=== PATIENT | female | born 1975 | race Asian ===

== ENCOUNTER 2024-03-03 07:30 | Inpatient (IN) | payer OTHER ==
[2024-03-01 08:55] LABS: BILIRUBIN,URINE NEGATIVE (NEGATIVE); BLOOD, URINE NEGATIVE (NEGATIVE); CLARITY/URINE CLEAR (CLEAR); COLOR,URINE YELLOW (YELLOW); GLUCOSE,URINE NEGATIVE (NEGATIVE); KETONES,URINE NEGATIVE (NEGATIVE); LEUKOCYTE ESTERASE ,URINE 1+ (NEGATIVE); NITRITE, URINE NEGATIVE (NEGATIVE); PROTEIN URINE NEGATIVE (NEGATIVE); UROBILINOGEN,URINE 0.2 (0.2-1.0)
[2024-03-01 08:58] LABS: BASOPHILS # (AUTO) 0.1 K/uL (0.0-0.2); BASOPHILS % (AUTO) 0.8 % (0.0-2.0); EOSINOPHILS # (AUTO) 0.3 K/uL (0.0-0.4); EOSINOPHILS % (AUTO) 3.1 % (0.0-4.0); HEMATOCRIT 31.5 % (36-48); HEMOGLOBIN 10.1 g/dL (12.0-16.0); LYMPHOCYTES # (AUTO) 2.1 K/uL (1.0-5.5); LYMPHOCYTES % (AUTO) 21.5 % (20.5-51.5); MEAN CORPUSCULAR HEMOGLOBIN 20 pg (27-31); MEAN CORPUSCULAR HGB CONC 32 % (32-36); MEAN CORPUSCULAR VOLUME 63 fL (79.0-98.0); MONOCYTES # (AUTO) 0.6 K/uL (0.0-1.0); MONOCYTES % (AUTO) 5.9 % (1.7-9.3); NEUTROPHILS # (AUTO) 6.7 K/uL (1.8-7.7); NEUTROPHILS % (AUTO) 68.7 % (40.0-70.0); PLATELET COUNT (AUTO) 396 K/uL (130-430); RED BLOOD CELL COUNT(AUTO) 4.97 MIL/uL (4.2-6.2); WHITE BLOOD COUNT (AUTO) 9.7 K/uL (4.8-10.8)
[2024-03-01 09:45] LABS: BACTERIA,URINE RARE /HPF (None Seen); RBC,URINE 0-3 /HPF (0-3)
[2024-03-01 09:57] LABS: ALBUMIN 4.1 g/dL (3.4-4.8); CALCIUM 9.5 mg/dL (8.4-11.0); CREATININE 0.54 mg/dL (0.55-1.30); POTASSIUM 4.4 mmol/L (3.5-5.1); TOTAL BILIRUBIN 0.3 mg/dL (0.0-1.0); TOTAL PROTEIN, SERUM 8.6 g/dL (6.4-8.3)
[2024-03-01 10:04] LABS: HYPOCHROMASIA SLIGHT
[2024-03-01 10:05] LABS: ANISOCYTOSIS 1+
[~2024-03-03] VITALS: Ht 149.9 cm; Wt 48.1 kg
[2024-03-08 12:05] LABS: BASOPHILS # (AUTO) 0.1 K/uL (0.0-0.2); EOSINOPHILS # (AUTO) 0.3 K/uL (0.0-0.4); EOSINOPHILS % (AUTO) 3.5 % (0.0-4.0); HEMATOCRIT 30.6 % (36-48); HEMOGLOBIN 9.8 g/dL (12.0-16.0); LYMPHOCYTES # (AUTO) 2.7 K/uL (1.0-5.5); LYMPHOCYTES % (AUTO) 32.4 % (20.5-51.5); MEAN CORPUSCULAR HEMOGLOBIN 20 pg (27-31); MEAN CORPUSCULAR HGB CONC 32 % (32-36); MEAN CORPUSCULAR VOLUME 63 fL (79.0-98.0); MONOCYTES # (AUTO) 0.7 K/uL (0.0-1.0); MONOCYTES % (AUTO) 8.4 % (1.7-9.3); NEUTROPHILS # (AUTO) 4.5 K/uL (1.8-7.7); NEUTROPHILS % (AUTO) 54.7 % (40.0-70.0); PLATELET COUNT (AUTO) 345 K/uL (130-430); RED BLOOD CELL COUNT(AUTO) 4.85 MIL/uL (4.2-6.2); RED CELL DISTRIBUTION WIDTH 19.9 % (9.0-15.0); WHITE BLOOD COUNT (AUTO) 8.2 K/uL (4.8-10.8)
[2024-03-08 12:15] LABS: HCG,QUAL RESULT NEGATIVE (NEGATIVE)
[2024-03-10] MEDS: CEFAZOLIN SOD 2 GM in D5W 50 ML IV ONE (07:00)
[2024-03-10] MEDS ORDERED: PROP10TA10 PO ×2 (09:49→14:55)
[2024-03-10] MEDS: ACETAMINOPHEN I.V. 1000 MG 100 ML IV ONE (11:33)
[2024-03-10] MEDS: MIDAZOLAM HCL 2 MG/2 ML VIAL (VERSED) ONE (11:33)
[2024-03-10] MEDS: fentaNYL CITRATE/PF 100 MCG/2 ML AMP ONE (11:33)
[2024-03-10] MEDS ORDERED: DEXAMETHASONE SOD PHOSPHATE 4 MG/ML VIAL ONE (11:34)
[2024-03-10] MEDS: MORPHINE SULFATE 10MG/10ML PF AMP ONE (11:38)
[2024-03-10] MEDS ORDERED: HYDROmorphone 1 MG/ML INJ. CARTRIDGE IVP PRN (13:15)
[2024-03-10] MEDS ORDERED: NALOXONE HCL 0.4 MG/ML AMP (NARCAN) IVP PRN ×2 (13:15→14:00)
[2024-03-10] MEDS ORDERED: fentaNYL CITRATE/PF 100 MCG/2 ML AMP IVP PRN ×2 (13:15)
[2024-03-10] MEDS ORDERED: ONDANSETRON HCL 4 MG/2 ML VIAL IVP PRN (13:15)
[2024-03-10] MEDS: LR 1,000 ML IV ONE (13:15)
[2024-03-10] MEDS ORDERED: HYDROmorphone 2 MG/ML VIAL IVP PRN (14:00)
[2024-03-10] MEDS: LR 1,000 ML IV SCH (14:00)
[2024-03-10] MEDS ORDERED: VITD2000 PO (14:55)
[2024-03-10 15:35] LABS: MEAN CORPUSCULAR VOLUME 63 fL (79.0-98.0)
[2024-03-10 15:46] LABS: BASOPHILS # (AUTO) 0.1 K/uL (0.0-0.2); BASOPHILS % (AUTO) 0.4 % (0.0-2.0); EOSINOPHILS # (AUTO) 0.1 K/uL (0.0-0.4); EOSINOPHILS % (AUTO) 0.3 % (0.0-4.0); HEMATOCRIT 28.9 % (36-48); HEMOGLOBIN 9.4 g/dL (12.0-16.0); LYMPHOCYTES # (AUTO) 1.3 K/uL (1.0-5.5); LYMPHOCYTES % (AUTO) 7.5 % (20.5-51.5); MEAN CORPUSCULAR HEMOGLOBIN 21 pg (27-31); MEAN CORPUSCULAR HGB CONC 32 % (32-36); MONOCYTES # (AUTO) 0.3 K/uL (0.0-1.0); MONOCYTES % (AUTO) 1.8 % (1.7-9.3); PLATELET COUNT (AUTO) 317 K/uL (130-430); RED BLOOD CELL COUNT(AUTO) 4.58 MIL/uL (4.2-6.2); RED CELL DISTRIBUTION WIDTH 20.3 % (9.0-15.0); WHITE BLOOD COUNT (AUTO) 17.8 K/uL (4.8-10.8)
[2024-03-10 16:53] VITALS: BP_SYST 120; PULSE 84; RESP 16; TEMP 97.1
[2024-03-10 17:26] VITALS: O2SAT 97
[2024-03-10] MEDS: ceFAZolin SODIUM 1 GM in D5W 50 ML IV SCH (18:18)
[2024-03-10] MEDS: SIMETHICONE 80 MG TAB.CHEW PO SCH (18:18)
[2024-03-10 20:20] VITALS: BP_SYST 122; PULSE 85; RESP 16; TEMP 98; O2SAT 98
[2024-03-10 20:30] VITALS: O2SAT 98
[2024-03-11] MEDS: KETOROLAC TROMETHAMINE 30 MG VIAL IVP SCH
[2024-03-11 01:26] VITALS: BP_SYST 126; PULSE 93; RESP 17; TEMP 99.9; O2SAT 97
[2024-03-11 08:00] VITALS: BP_SYST 117; PULSE 104; RESP 17; TEMP 100; O2SAT 97
[2024-03-11] MEDS: ACETAMINOPHEN 500 MG TABLET PO PRN (09:56)
[2024-03-11 12:41] LABS: BASOPHILS % (AUTO) 0.3 % (0.0-2.0); EOSINOPHILS % (AUTO) 0.2 % (0.0-4.0); HEMATOCRIT 23.2 % (36-48); HEMOGLOBIN 7.5 g/dL (12.0-16.0); LYMPHOCYTES # (AUTO) 1.7 K/uL (1.0-5.5); LYMPHOCYTES % (AUTO) 11.9 % (20.5-51.5); MEAN CORPUSCULAR HEMOGLOBIN 21 pg (27-31); MEAN CORPUSCULAR HGB CONC 32 % (32-36); MEAN CORPUSCULAR VOLUME 64 fL (79.0-98.0); MONOCYTES # (AUTO) 0.9 K/uL (0.0-1.0); MONOCYTES % (AUTO) 6.4 % (1.7-9.3); NEUTROPHILS # (AUTO) 11.4 K/uL (1.8-7.7); NEUTROPHILS % (AUTO) 81.2 % (40.0-70.0); PLATELET COUNT (AUTO) 281 K/uL (130-430); RED BLOOD CELL COUNT(AUTO) 3.64 MIL/uL (4.2-6.2); RED CELL DISTRIBUTION WIDTH 19.9 % (9.0-15.0)
[2024-03-11 16:00] VITALS: BP_SYST 133; PULSE 98; RESP 17; TEMP 98.7; O2SAT 97
[2024-03-11 20:00] VITALS: BP_SYST 140; PULSE 100; RESP 18; TEMP 100.1
[2024-03-11] MEDS: HYDROmorphone 1 MG/ML INJ. CARTRIDGE IM PRN (21:06)
[2024-03-12] VITALS: BP_SYST 112; PULSE 85; RESP 18; TEMP 98.4; O2SAT 94
[2024-03-12 08:05] VITALS: O2SAT 98
[2024-03-12 09:38] LABS: BASOPHILS # (AUTO) 0.1 K/uL (0.0-0.2); BASOPHILS % (AUTO) 0.4 % (0.0-2.0); EOSINOPHILS # (AUTO) 0.1 K/uL (0.0-0.4); EOSINOPHILS % (AUTO) 0.4 % (0.0-4.0); HEMATOCRIT 27.2 % (36-48); HEMOGLOBIN 8.8 g/dL (12.0-16.0); LYMPHOCYTES # (AUTO) 1.8 K/uL (1.0-5.5); LYMPHOCYTES % (AUTO) 10.9 % (20.5-51.5); MEAN CORPUSCULAR HEMOGLOBIN 22 pg (27-31); MEAN CORPUSCULAR HGB CONC 32 % (32-36); MEAN CORPUSCULAR VOLUME 66 fL (79.0-98.0); MONOCYTES # (AUTO) 1.4 K/uL (0.0-1.0); MONOCYTES % (AUTO) 8.4 % (1.7-9.3); NEUTROPHILS # (AUTO) 13.2 K/uL (1.8-7.7); NEUTROPHILS % (AUTO) 79.9 % (40.0-70.0); PLATELET COUNT (AUTO) 258 K/uL (130-430); RED CELL DISTRIBUTION WIDTH 21.5 % (9.0-15.0); WHITE BLOOD COUNT (AUTO) 16.5 K/uL (4.8-10.8)
[2024-03-12 10:14] LABS: ANISOCYTOSIS 2+; HYPOCHROMASIA SLIGHT
[2024-03-12 10:44] VITALS: BP_SYST 128; PULSE 86; RESP 15; TEMP 99.7; O2SAT 97
[2024-03-12] MEDS ORDERED: KETOROLAC TROMETHAMINE 30 MG VIAL IVP PRN (13:00)
[2024-03-12 15:55] VITALS: BP_SYST 126; PULSE 82; RESP 15; TEMP 99.5; O2SAT 97
[2024-03-12] MEDS: OXYCODONE/ACETAMINOPHEN 5-325 TABLET PO PRN (16:52)
[2024-03-12] MEDS: LACTULOSE 20 GM/30 ML UDC PO ONE (16:52)
[2024-03-13 00:37] VITALS: BP_SYST 125; PULSE 97; RESP 16; TEMP 97.4; O2SAT 95
[2024-03-13 08:00] VITALS: BP_SYST 139; BP_SYST 145; PULSE 71; PULSE 78; RESP 17; RESP 18; TEMP 97.3; TEMP 98.7; O2SAT 94
[2024-03-13] MEDS: LACTULOSE 20 GM/30 ML UDC PO SCH (09:13)
[2024-03-13 12:00] VITALS: BP_SYST 128; PULSE 68; RESP 17; TEMP 97.8; O2SAT 97
[2024-03-13 16:00] VITALS: BP_SYST 133; PULSE 80; RESP 19; TEMP 98.1; O2SAT 98
[2024-03-13 20:00] VITALS: BP_SYST 135; PULSE 82; RESP 18; TEMP 98.2; O2SAT 96
[2024-03-14 02:00] VITALS: BP_SYST 138; PULSE 85; RESP 20; TEMP 97.5; O2SAT 95
[2024-03-14 08:00] VITALS: BP_SYST 115; PULSE 86; RESP 18; TEMP 98.1; O2SAT 97
[2024-03-14] MEDS: BISACODYL 10 MG/SUPPOSITORY RC PRN (09:17)
[2024-03-14 12:00] VITALS: BP_SYST 114; PULSE 68; RESP 17; TEMP 98.1; O2SAT 96
[2024-03-14 14:14] VITALS: BP_SYST 119; PULSE 79; RESP 18; TEMP 98.7; O2SAT 98
== END 2024-03-14 17:15 | disposition home or self-care (01) | DRG 743 ==
LOC: SMU 03-10 08:48
PROVIDERS: ADMIT Specialist; ATTEND Specialist
PROC: 0UT20ZZ Resection of Bilateral Ovaries, Open Approach (ICD-10-PCS; 2024-03-10)
PROC: 0UT70ZZ Resection of Bilateral Fallopian Tubes, Open Approach (ICD-10-PCS; 2024-03-10)
PROC: 0TJ Urinary System, Inspection (ICD-10-PCS; 2024-03-10)
PROC: 0UN20ZZ Release Bilateral Ovaries, Open Approach (ICD-10-PCS; 2024-03-10)
PROC: 0DN80ZZ Release Small Intestine, Open Approach (ICD-10-PCS; 2024-03-10)
PROC: 0TJB8ZZ Inspection of Bladder, Via Natural or Artificial Opening Endoscopic (ICD-10-PCS; 2024-03-10)
PROC: 0UT90ZZ Resection of Uterus, Open Approach (ICD-10-PCS; principal; 2024-03-10 11:34)
PROC: 30233N1 Transfusion of Nonautologous Red Blood Cells into Peripheral Vein, Percutaneous Approach (ICD-10-PCS; 2024-03-11)
DX: D25.9 Leiomyoma of uterus, unspecified (principal); R19.00 Intra-abdominal and pelvic swelling, mass and lump, unspecified site; N92.0 Excessive and frequent menstruation with regular cycle; D64.9 Anemia, unspecified; N89.5 Stricture and atresia of vagina; Z79.899 Other long term (current) drug therapy
CPT/HCPCS: 36415; 71046; 80053; 81000; 81001; 81015; 83051; 84702; 84703; 85025; 86886; 86900; 86901; 86920; 87081; 88305; 88307; 93005; J0131; J0690; J1100; J1170; J1885; J1940; J2274; J2405; J2704; J2710; J3010; J3465; J3490; J7060; J7120; P9021

== ENCOUNTER 2024-04-08 11:50 | Outpatient (CLI) | payer OTHER ==
[~2024-04-08 11:50] MED LIST: PROP10TA10 PO; VITD2000 PO
[2024-04-08 13:16] LABS: BASOPHILS # (AUTO) 0.1 K/uL (0.0-0.2); BASOPHILS % (AUTO) 0.7 % (0.0-2.0); EOSINOPHILS # (AUTO) 0.3 K/uL (0.0-0.4); EOSINOPHILS % (AUTO) 4.3 % (0.0-4.0); HEMATOCRIT 35.9 % (36-48); LYMPHOCYTES # (AUTO) 2.1 K/uL (1.0-5.5); LYMPHOCYTES % (AUTO) 28.7 % (20.5-51.5); MEAN CORPUSCULAR HEMOGLOBIN 24 pg (27-31); MEAN CORPUSCULAR HGB CONC 33 % (32-36); MEAN CORPUSCULAR VOLUME 72 fL (79.0-98.0); MONOCYTES # (AUTO) 0.5 K/uL (0.0-1.0); MONOCYTES % (AUTO) 6.7 % (1.7-9.3); NEUTROPHILS # (AUTO) 4.3 K/uL (1.8-7.7); NEUTROPHILS % (AUTO) 59.6 % (40.0-70.0); PLATELET COUNT (AUTO) 245 K/uL (130-430); RED CELL DISTRIBUTION WIDTH 25.9 % (9.0-15.0); WHITE BLOOD COUNT (AUTO) 7.2 K/uL (4.8-10.8)
[2024-04-08 13:27] LABS: TOTAL IRON BIND. CAPACITY 398 ug/dL (250-450)
[2024-04-08 13:46] LABS: ALBUMIN 4.2 g/dL (3.4-4.8); BILIRUBIN,DIRECT 0.1 mg/dL (0.0-0.3); CALCIUM 9.7 mg/dL (8.4-11.0); CREATININE 0.51 mg/dL (0.55-1.30); POTASSIUM 3.8 mmol/L (3.5-5.1); TOTAL BILIRUBIN 0.6 mg/dL (0.0-1.0); TOTAL PROTEIN, SERUM 8.8 g/dL (6.4-8.3)
[2024-04-08 13:47] LABS: HEMOGLOBIN A1C 5.2 % (<5.7)
== END 2024-04-08 18:36 | disposition home or self-care (01) ==
LOC: SLB 11:50
PROVIDERS: ATTEND Internal Medicine
DX: Z00.00 Encounter for general adult medical examination without abnormal findings (principal); D64.9 Anemia, unspecified
CPT/HCPCS: 36415; 80053; 80061; 82248; 83037; 83540; 83550; 85025